=== PATIENT | female | born 1945 | race Caucasian/White ===

== ENCOUNTER 2020-12-03 07:29 | Day surgery (SDC) | payer MEDICARE, OTHER ==
[~2020-12-03] VITALS: Ht 154.9 cm; Wt 60.2 kg
[2020-12-03] MEDS ORDERED: normal saline 1000ml 1,000 ML IV SCH (07:55)
[2020-12-03] MEDS ORDERED: BENZ200C53 PO (08:11)
[2020-12-03] MEDS ORDERED: Levothyroxine PO (08:11)
[2020-12-03] MEDS ORDERED: ALEN70TA60 PO (08:11)
[2020-12-03] MEDS ORDERED: ALBU18HF2 INH (08:14)
[2020-12-03] MEDS ORDERED: ATOR10TA87 PO (08:14)
[2020-12-03] MEDS ORDERED: FLUT1AER INH (08:20)
[2020-12-03] MEDS ORDERED: RIVA20TA PO (08:20)
[2020-12-03 09:00] VITALS: BP 165/75
[2020-12-03] MEDS ORDERED: LIDOcaine 1%/PF 5ML 10 MG/ML VIAL ONE (09:10)
[2020-12-03] MEDS ORDERED: heparin sodium, porcine/PF 100unit/ml 5ML syringe ONE (09:10)
[2020-12-03] MEDS ORDERED: midazolam 1 mg/ML 2ml injection ONE (09:11)
[2020-12-03] MEDS ORDERED: fentaNYL/PF 50MCG/1 ML 2ML syringe ONE (09:11)
[2020-12-03] MEDS ORDERED: LIDOcaine 1% W/epiNEPHrine 1:200,000 10ml vial ONE (09:41)
[2020-12-03] MEDS ORDERED: iohexol 300 MG/1 ML 50ml polymer ONE (10:23)
[2020-12-03 10:45] VITALS: BP 155/67
[2020-12-03 11:00] VITALS: BP 154/108
[2020-12-03 11:15] VITALS: BP 150/88
== END 2020-12-03 11:46 | disposition home or self-care (01) ==
LOC: SSTAY O 07:29
PROVIDERS: ATTEND Preventive Medicine Aerospace Medicine
DX: C34.31 Malignant neoplasm of lower lobe, right bronchus or lung (principal); Z79.899 Other long term (current) drug therapy; Z79.01 Long term (current) use of anticoagulants
CPT/HCPCS: 36415; 36561; 76937; 77001; 85610; 99152; 99153; C1769; C1788; C1894; J1642; J2250; J3010; Q9967